=== PATIENT | female | born 1955 | race Caucasian/White ===

== ENCOUNTER 2016-07-01 16:07 | Observation (INO) | payer MEDICARE, OTHER ==
--- NOTE | ~2016-07-01 | DS ---
Unit #: [id number] #: [id number] Patient: OLLIE ZAMBRANO [id number] [address] [address] [id number] I MR#: [id number] NAME: OLLIE ZAMBRANO. ROOM: 301 Age: 61 Sex: F Admission Date: 07/01/2016 : 1955 Discharge Date: 07/03/2016 Attending Physician: Trey Hester M.D. DISCHARGE SUMMARY DISCHARGE DIAGNOSES 1. Angina pectoris, ruled out for acute myocardial infarction. 2. Acute bronchitis. 3. Lung nodule. 4. Chronic obstructive pulmonary disease exacerbation. 5. Asthma exacerbation. 6. Uncontrolled hypertension. 7. Hyperlipidemia. 8. Diabetes mellitus type 2. 9. Obesity. 10. Coronary artery disease with history of PCI, drug-eluting stent to the right coronary artery and acute right ventricular branch in 2011. 11. Chronic back pain. DISCHARGE MEDICATIONS 1. ProAir FHA 1-2 puffs p.r.n. 2. Combivent mini-nebs p.r.n. 3. Q-Ishan 1 puff inhaled b.i.d. 4. Glucophage 500 mg b.i.d. 5. Norvasc 5 mg daily. 6. Metoprolol tartrate 50 mg at nighttime. 7. Senna lax 1 tablet p.r.n. 8. Furosemide 20 mg b.i.d. 9. Insulin NPH 30 units q.a.m., 50 units q.p.m. 10. Humalog 13-15 units subcutaneous b.i.d. 11. Aspirin 81 mg daily. 12. Ibuprofen 400 mg p.r.n. 13. Amoxicillin 500 mg b.i.d. times 7 days. 14. Effient 10 mg daily. 15. Omeprazole 40 mg daily. 16. Imdur 60 mg daily. HOSPITAL COURSE This is a 61-year-old white female who presented to the emergency room with multiple complaints, including dyspnea, palpitations, wheezing, dizziness and cough. She also complained of chest pain and pressure. She was ruled out for an acute myocardial infarction with negative cardiac enzymes and troponin. It was felt the patient's chest pain was most likely pleuritic in nature. Imdur was increased from 30 to 60 mg daily. She was continued on dual antiplatelet therapy with aspirin and Plavix. Blood pressure was uncontrolled. There was better control after institution of Norvasc and increase of beta maeve. There was no evidence of heart failure. Dr. Peguero was asked to see the patient for pulmonary management. He felt the patient had acute bronchitis with Unit #: [id number] #: [id number] Patient: OLLIE ZAMBRANO asthma and chronic obstructive pulmonary disease exacerbation. Viral respiratory and nasal swabs were obtained, with results currently pending. She was continued on bronchial dilators and mini-neb treatments. Amoxicillin was started for acute bronchitis. There was elevation of d-dimer at 592. CTA of the chest revealed no evidence of pulmonary embolism or dissection. However, it was noted for noncalcified pulmonary nodules that were slightly larger than previous. Today the patient's blood pressure is better controlled. Her dyspnea has improved. She has no further episodes of chest pain. She is stable for discharge home today. PHYSICAL EXAMINATION VITALS: Blood pressure 138/81, heart rate 59. CHEST: Diminished breath sounds. HEART: S1 and S2. Regular rate and rhythm. ABDOMEN: Soft. Nontender. Bowel sounds present. EXTREMITIES: Without leg edema. DIAGNOSTIC DATA LABORATORY: Glucose 216, BUN 12, creatinine 0.5, sodium 134, potassium 3.7, d-dimer 592. IMAGING: CTA of the chest shows no evidence of pulmonary embolism. Three noncalcified pulmonary nodules, largest in the left lower lobe that measures 1.2 cm on today's study. May represent benign etiology, but slow growing malignancy cannot be excluded. CONSULTANTS Dr. Peguero for pulmonary management. DISCHARGE INSTRUCTIONS 1. The patient will be discharged home today. 2. Follow up with Dr. Hester on 09/11/2016 at 2:3 p.m. 3. Follow up with Dr. Joanna Pineda in two weeks. 4. The patient has a scheduled outpatient PET scan at the [facility] to follow up on malignancy, especially with development of pulmonary nodules. 5. Continue amoxicillin for seven days. 6. Medication changes include increase in metoprolol and Imdur. Norvasc has been added. Nitroglycerin has been provided. Dictated by... Kellee Ochoa.P.RMarlonNMarlon for Wali Sandy TD: 07/04/2016 09:50 JOB #: [id number] [facility] Unit #: [id number] #: [id number] Patient: JUAN MANUEL,OLLIE L DISCHARGE SUMMARY Page 1 of 1 X Stephen Pablo APRN DISCHARGE SUMMARY
--- NOTE | ~2016-07-01 | HP ---
Unit #: [id number] #: [id number] Patient: OLLIE ZAMBRANO [id number] [address] [place], [place] [address] [id number] I MR#: [id number] NAME: OLLIE ZAMBRANO ROOM: 301 Age: 61 Sex: F Admission Date: 07/01/2016 : 1955 Attending Physician: Trey Hester M.D. HISTORY AND PHYSICAL HISTORY OF PRESENT ILLNESS This is a 61-year-old, white female who has multiple medical problems including coronary artery disease. In September of 2014, she underwent cardiac catheterization and found to have 3-vessel coronary artery disease. She underwent angioplasty with drug-eluting stent to the mid right coronary artery and the acute right ventricular branch. She had disease in the circumflex and the LAD that was not dilated. She also had previous angioplasty with bare metal stent placed into the right coronary artery in 2012. Bare metal stent was used because the patient was diagnosed with uterine cancer. Since that time, the patient has undergone radiation therapy. She has been treated at the [facility] and has ongoing workup with questionable metastasis to her liver. She has chronic back pain and ambulation is difficult for her. She spends majority of her time in bed. She presents to the emergency room because of shortness of breath, palpitations, wheezing, dizziness, and cough. Her symptoms have been ongoing for two weeks. She reports substernal chest pain and pressure that radiates to her left jaw and neck. She has chills, but no fever. Her chest pressure has been off and on for the past two weeks, occurring at various occasions at rest and on exertion. There are no alleviating factors. Dizziness is noted when she stands. She denies syncope or near syncope. She went to a pulmonary physician's office today because of wheezing. Her blood pressure was elevated and it was suggested that she come to the emergency room for evaluation. Upon arrival to the emergency room, her blood pressure was 170/80 mmHg. Troponin was negative. Her D-dimer was elevated to 592. Electrocardiogram shows no acute ischemic changes. PAST MEDICAL HISTORY 1. PCI with bare metal stent to the right coronary artery, 11/2012. 2. Cardiac catheterization, 09/27/2014, shows circumflex artery with 75% to 80% stenosis after the origin. LAD proximal 40% to 50%, at the junction 75%, and near the apex 90%. First diagonal branch 70%. Right coronary artery midvessel 90% to 95% involving the acute right ventricular branch. Acute right ventricular branch with long segment of 80% to 90% stenosis. Distal right coronary artery 40%. PDA and PLV branches normal. Left main normal. 3. Two-dimensional echocardiogram, 03/01/2012, shows an ejection fraction equal to 50%. There is trace tricuspid regurgitation and moderate concentric left ventricular hypertrophy. 4. Status post angioplasty with drug-eluting stents to the mid right coronary artery and acute right ventricular branch. 5. Hypertension. 6. Hyperlipidemia. 7. Diabetes mellitus type 2. Unit #: [id number] #: [id number] Patient: OLLIE ZAMBRANO 8. COPD. 9. Chronic back pain. 10. Metastatic uterine cancer, status post radiation. 11. Obesity. 12. Nonsmoker. PAST SURGICAL HISTORY 1. Cholecystectomy. 2. Hysterectomy. 3. Abdominal surgery for tubal . 4. Exploratory laparotomy with lysis of abdominal adhesions. SOCIAL HISTORY The patient is . She ambulates with a walker or cane when able. She has never smoked. No illicit drug and alcohol use. FAMILY HISTORY Father from Alzheimer disease and had a history of myocardial infarction. Had a brother who had myocardial infarction and cardiomyopathy. Sister who had a myocardial infarction with subsequent coronary artery bypass graft. She also had an AICD. REVIEW OF SYSTEMS Ten-point review of systems negative, except details stated in the HPI. PHYSICAL EXAMINATION VITAL SIGNS: Blood pressure 159/82, heart rate 72, and temperature 97.8. GENERAL: This is an anxious, 61-year-old, obese, white female who is in no acute distress. NEUROLOGICAL: She is awake, alert, and oriented. There are no focal weaknesses. NECK: Trachea is midline. No thyromegaly or lymphadenopathy. No jugular venous distention. HEART: S1 and S2 heart sounds are normal. No murmurs. No rubs or clicks. Regular rate and rhythm. LUNGS: With faint expiratory wheezes, both lungs. ABDOMEN: Soft. Good bowels sounds are positive. EXTREMITIES: Without leg edema. SKIN: Warm and dry. ALLERGIES Ceclor. ADVERSE REACTIONS Dilaudid, Zanaflex, Plavix, guaifenesin, diazepam, morphine, codeine, epinephrine, pseudoephedrine, lovastatin, Dulera, tetracycline, erythromycin, sulfamethoxazole, trimethoprim, ciprofloxacin, fluconazole, loratadine, carvedilol, hydralazine, losartan, Levaquin, Singulair, and muscle relaxant. HOME MEDICATIONS 1. Furosemide 20 mg b.i.d. 2. Metformin 500 mg b.i.d. 3. Metoprolol tartrate 25 mg b.i.d. 4. Effient 10 mg daily. 5. Imdur 30 mg daily. 6. Humulin N 30 units subcu. q.a.m. and 50 units q.p.m. 7. Humalog 13-15 units subcu. b.i.d. Unit #: [id number] #: [id number] Patient: OLLIE ZAMBRANO 8. QVAR 1 puff b.i.d. 9. Albuterol sulfate 1-2 puffs p.r.n. 10. Senna-Lax 1 tablet p.r.n. 11. Omeprazole 40 mg daily. 12. Ibuprofen 400 mg p.r.n. 13. Combivent mini-nebs p.r.n. DIAGNOSTIC STUDIES LABORATORY: Hemoglobin 14.1, hematocrit 42.2, platelet count 217, and white count 6. Sodium 138, potassium 4.1, BUN 12, creatinine 2.6, and glucose 165. Troponin less than 0.03. BNP 18. D-dimer 592. IMAGING: Chest x-ray shows no active disease. CARDIOVASCULAR: Electrocardiogram: Normal sinus rhythm with a rate of 73 beats per minute with no acute ischemic changes. IMPRESSION 1. Chest pain may be secondary to ischemic heart disease. 2. Uncontrolled hypertension. 3. Status post PCI and stent to the right coronary artery in 2012 with PCI and drug-eluting stent to the mid right coronary artery and acute right ventricular branch in 2015. Left circumflex and LAD not dilated. 4. Metastatic uterine cancer. 5. Insulin dependent diabetes mellitus type 2. 6. COPD. 7. Obesity. PLAN 1. Will control blood pressure with increase in beta-maeve. 2. Will increase Imdur and add Norvasc to control angina. 3. Continue to trend cardiac enzymes and troponin to rule out myocardial infarction. 4. D-dimer is elevated. Will obtain CT of the chest per PE protocol to rule out PE. 5. Anticoagulate with aspirin and Lovenox. 6. Will ask (1) to see the patient for COPD. 7. Orthostatic blood pressure will be obtained to evaluate dizziness. 8. The patient may require repeat cardiac catheterization with PCI on the mid LAD and distal LAD. Dictated by Stephen Pablo A.P.R.N. for Wali Burnett/sara TD: 07/02/2016 06:08 JOB #: [id number] Unit #: [id number] #: [id number] Patient: OLLIE ZAMBRANO HISTORY AND PHYSICAL Page 1 of 1 X Stephen Pablo APRN X HISTORY AND PHYSICAL
--- NOTE | ~2016-07-01 | EKG ---
PATIENT: OLLIE ZAMBRANO UNIT #: [id number] Ventricular Rate: 64 BPM Atrial Rate: 64 BPM P-R Interval: 192 ms QRS Duration: 88 ms Q-T Interval: 436 ms QTC Calculation(Bezet): 449 ms P [place]: 31 degrees Calculated R [place]: 51 degrees Calculated T [place]: 53 degrees Diagnosis Line: Normal sinus rhythm with sinus arrhythmia Diagnosis Line: Normal ECG Diagnosis Line: Diagnosis Line: Confirmed by CAHRLY GUADALUPE MD ([id number]) on Diagnosis Line: 07/03/2016 7:27:14 AM INTERPRETING : JOSE
--- NOTE | ~2016-07-01 | EKG ---
PATIENT: OLLIE ZAMBRANO UNIT #: [id number] Ventricular Rate: 76 BPM Atrial Rate: 76 BPM P-R Interval: 190 ms QRS Duration: 78 ms Q-T Interval: 398 ms QTC Calculation(Bezet): 447 ms P [place]: 26 degrees Calculated R [place]: 39 degrees Calculated T [place]: 40 degrees Diagnosis Line: Normal sinus rhythm Diagnosis Line: Normal ECG Diagnosis Line: When compared with ECG of 01-JUL-2016 14:00, Diagnosis Line: (unconfirmed) Diagnosis Line: No significant change was found Diagnosis Line: Confirmed by MILLY HEARN MD ([id number]) on 07/02/2016 Diagnosis Line: 10:50:12 PM INTERPRETING MD: NADIYA CONDE
--- NOTE | ~2016-07-01 | CR72 ---
[facility] A Service of [facility] & [facility] RADIOLOGY TEXT RESULTS PATIENT: OLLIE ZAMBRANO LOCATION: [facility] : 53 UNIT #: [id number] AGE: [address]: Arcelia Cooper MD SEX: F ORDER DR: [id number] [facility] [address] [place], [place] [address] [id number] MR#: [id number] Acc #: [id number] NAME: OLLIE ZAMBRANO : 1955 SEX: F STUDY DATE/TIME: 07/01/2016 14:28 UNIT: [facility] ROOM: STUDY DESCRIPTION: CR Chest Single View Portable Attending Physician: Arcelia Cooper M.D. Ordering Physician: Arcelia Cooper M.D. MEDICAL IMAGING REPORT This report is preliminary unless electronic signature is present EXAM Portable chest x-ray INDICATION Chest pain and headache for 1 day. FINDINGS Comparison is made to a prior exam from August 31, 2015. Heart size is within normal limits. I do not see any acute infiltrates. There is no pneumothorax or pleural effusion. There is stable eventration of the right hemidiaphragm. Dictated by... Kassie Chao M.D. THIS IS AN ELECTRONICALLY VERIFIED REPORT Kassie Chao M.D. at 07/01/2016 5:33 PM BILL/madeline TD: 07/01/2016 16:09 JOB #: [id number] MEDICAL IMAGING REPORT Page 1 of 1 COPY
--- NOTE | ~2016-07-01 | CT16 ---
[facility] A Service of [facility] & [facility] RADIOLOGY TEXT RESULTS PATIENT: OLLIE ZAMBRANO LOCATION: [facility] 301- : 53 UNIT #: [id number] AGE: [address]: Trey Hester MD SEX: F ORDER DR: [id number] [facility] [address] [place], [place] [address] [id number] I MR#: [id number] Acc #: [id number] NAME: OLLIE ZAMBRANO : 1955 SEX: F STUDY DATE/TIME: 07/01/2016 19:31 UNIT: [address] ROOM: [facility] STUDY DESCRIPTION: CT Angio Chest for PE Attending Physician: Trey Hester M.D. Ordering Physician: Arcelia Cooper M.D. MEDICAL IMAGING REPORT This report is preliminary unless electronic signature is present EXAM CT chest with contrast, PE protocol. DATE OF EXAM 07/01/2016 INDICATIONS 61-year-old female with chest pain and shortness of breath for 1 week. Elevated D-dimer. TECHNIQUE CT of the chest was performed following administration of IV contrast using a pulmonary embolism protocol. Coronal and sagittal reformatted images were obtained. NOTE: This CT exam was performed with one or more of the following radiation dose reduction techniques: automatic exposure control, adjustment of mA and/or kV according to patient size, and iterative reconstruction. COMPARISON Comparison with 08/31/2015. FINDINGS There is no evidence of pulmonary embolism. There is no evidence of lymphadenopathy or pleural effusion. Redemonstrated are bilateral pulmonary nodules. The largest is located in the left lower lobe measures 1.2 cm on today's study. Previously it measured about 9 mm and was not present in 2014. The other 2 nodules are both less than 1 cm and located in the right upper lobe, and may be slightly increased in size but this may be due to differences in slice thickness. There is also some nodularity along the right hemidiaphragm which is chronic. It has been present since at least 2013. Its etiology is uncertain. Limited imaging of the upper abdomen demonstrates cholecystectomy. Patient does have a nodular contour of the liver suggesting cirrhotic morphology. The bone [facility] A Service of [facility] RADIOLOGY TEXT RESULTS PATIENT: OLLIE ZAMBRANO LOCATION: [facility] 301-01 : 53 UNIT #: [id number] AGE: [address]: Trey Hester MD SEX: F ORDER DR: windows are unremarkable. IMPRESSION 1. There is no evidence of pulmonary embolism. 2. 3 noncalcified pulmonary nodules are again noted. The largest is in the left lower lobe and measures about 1.2 cm on today's study. Previously it was 9 mm and reviewing study from 2013 demonstrated that it was not present. While this may represent a benign etiology, a slow growing malignancy cannot be excluded. Would suggest evaluation with a PET/CT. 3. Additional findings as described above. Dictated by... Feliz Nguyễn M.D. THIS IS AN ELECTRONICALLY VERIFIED REPORT Feliz Nguyễn M.D. at 07/02/2016 10:04 AM OMAR/arturo TD: 07/01/2016 23:48 JOB #: [id number] MEDICAL IMAGING REPORT Page 1 of 1 COPY
--- NOTE | ~2016-07-01 | CO ---
Unit #: [id number] #: [id number] Patient: OLLIE ZAMBRANO [id number] [address] [place], [place] [address] [id number] I MR#: [id number] NAME: OLLIE ZAMBRANO. ROOM: 301 Age: 61 Sex: F Admission Date: 07/01/2016 : 1955 Attending Physician: Trey Hester M.D. Requesting Physician: Trey Hester M.D. CONSULTATION REPORT HISTORY OF PRESENT ILLNESS This is a 61-year-old lady with a history of multiple medical problems. She has got a history of coronary artery disease. In September of 2014, she had cardiac catheterization, 3-vessel disease, drug-eluting stent and angioplasty x2 in mid right coronary artery and right ventricular branch. She has had a history of uterine cancer. She has also had a history of radiation to her spine. She states approximately a month and a half ago, she had recurrence of her lumbar disk disease, which has caused her significant pain in the past and now occurs again. She has had a lack of ambulation due to severe back pain. Patient spends a lot of time in bed. She had been caring for her who is now in a [place] [facility] due to amputation. Patient has now had two weeks of shortness of breath. No sick contacts. Substernal chest pain and chills. No fever. Chest pressure off and on. Cough has not been productive. Denies syncope and near syncope. Patient went to our office because of wheezing. She is on inhaled corticosteroids. She does not do well with systemic corticosteroids. D-dimer was slightly elevated. CT scan of the chest was performed, PE protocol. It showed increase in size of 1 nodule to 1.2 cm x 9 mm approximately 1 year ago. REVIEW OF SYSTEMS Negative, except as per history of present illness. PAST MEDICAL HISTORY Significant for PCI and bare metal stent in right coronary artery in 2012, repeat stenting x2 in right distribution, 50% ejection fraction, hypertension, hyperlipidemia, diabetes mellitus type 2, COPD, chronic back pain, metastatic uterine cancer, status post radiation, obesity, and patient is a nonsmoker. PAST SURGICAL HISTORY Significant for cholecystectomy, hysterectomy, history of abdominal surgery for tubal , and history of exploratory laparotomy with lysis of abdominal adhesions. SOCIAL HISTORY The patient is . She ambulates with a walker. She is a never smoker. She has had significant secondhand smoke exposure. No polysubstance use. No alcohol use. No occupational exposure. FAMILY HISTORY Significant for Alzheimer, coronary artery disease, and cardiomyopathy. PHYSICAL EXAMINATION Unit #: [id number] #: [id number] Patient: OLLIE ZAMBRANO VITAL SIGNS: T. current 97.7, pulse 64, respiratory rate 16, 02 saturation 97% on 2 liters nasal cannula. HEENT: Extraocular movements intact. CHEST: Clear to auscultation bilaterally. CARDIOVASCULAR: Regular rate. No gallop. ABDOMEN: Soft, nontender, and nondistended. EXTREMITIES: Show no evidence of edema. DIAGNOSTIC STUDIES LABORATORY: Data shows the cardiac enzymes are negative x3. Glucose between 223 and 281, BUN and creatinine are 12 and 0.5, and sodium 134. Otherwise, chem. 7 is within normal limits. ASSESSMENT AND PLAN 1. Lung nodule appears to be increasing in size. Patient will need PET scan as an outpatient. 2. COPD, acute bronchitis, asthma exacerbation. Will start patient on amoxicillin as she is allergic to a large number of medications including azithromycin and fluoroquinolones. The patient will continue on her inhaled QVAR and scheduled albuterol nebs. If patient is doing well, she probably can be discharged tomorrow. Please page me at [phone] for any questions. Dictated by... Mendoza Peguero M.D. Estella TD: 07/03/2016 07:24 JOB #: [id number] CONSULTATION REPORT Page 1 of 1 X Juan Peguero MD CONSULTATION REPORT
--- NOTE | ~2016-07-01 | EKG ---
PATIENT: OLLIE ZAMBRANO UNIT #: [id number] Ventricular Rate: 73 BPM Atrial Rate: 73 BPM P-R Interval: 192 ms QRS Duration: 82 ms Q-T Interval: 386 ms QTC Calculation(Bezet): 425 ms P [place]: 26 degrees Calculated R [place]: 14 degrees Calculated T [place]: 44 degrees Diagnosis Line: Normal sinus rhythm Diagnosis Line: Possible Left atrial enlargement Diagnosis Line: Borderline ECG Diagnosis Line: When compared with ECG of 01-SEP-2015 12:47, Diagnosis Line: Questionable change in QRS axis Diagnosis Line: Confirmed by MILLY HEARN MD ([id number]) on 07/02/2016 Diagnosis Line: 7:15:37 PM INTERPRETING MD: NADIYA CONDE
[2016-07-01 14:49] LABS: BASOPHIL% 0.6 % (0-2.5); EOSINOPHIL# 0.3 X10e3 (0-0.7); EOSINOPHIL% 4.3 % (0.0-7.0); HEMATOCRIT 42.2 % (35.0-45.0); HEMOGLOBIN 14.1 gm/dL (12.0-16.0); LYMPHOCYTE# 0.9 X10e3 (1.0-3.5); LYMPHOCYTE% 15.5 % (17.0-45.0); MEAN CORPUSCULAR HEMOGLOBIN 30.5 PG (28-34); MEAN CORPUSCULAR HGB CONC 33.5 g/dL (30-36); MEAN PLATELET VOLUME 7.5 FL (6.5-11.5); MONOCYTE# 0.7 X10e3 (0-1.0); MONOCYTE% 12.3 % (3.0-12.0); NEUTROPHIL# 4.1 X10e3 (1.5-7.1); NEUTROPHIL% 67.3 % (40-75); PLATELET COUNT 217 X10e3 (140-420); RED BLOOD COUNT 4.64 X10e (3.90-5.30); RED CELL DISTRIBUTION WIDTH 13.7 % (11.0-15.5)
[2016-07-01 15:00] LABS: POC - CKMB 1.3 ng/mL (0.0-7.9); POC - TROPONIN <0.05 ng/mL (<=0.05)
[2016-07-01 15:01] LABS: DIFF IND NO
[2016-07-01 15:08] LABS: PARTIAL THROMBOPLASTIN TIME 24.3 SECONDS (23.5-31.3); PROTHROMBIN TIME (PATIENT) 10.4 SECONDS (9.6-11.5)
[2016-07-01 15:18] LABS: ALBUMIN SERUM 3.6 g/dL (3.5-5.0); BILIRUBIN, DIRECT 0.1 mg/dL (0.0-0.2); BILIRUBIN,INDIRECT 0.4 mg/dL (0.0-0.9); BILIRUBIN,TOTAL 0.5 mg/dL (0.2-2.0); CALCIUM SERUM 9.2 mg/dL (8.4-10.2); CREATININE SERUM 0.6 mg/dL (0.6-1.4); GLOM FILT RATE Estimated 97.7 mL/min (>60); POTASSIUM 4.2 mmol/L (3.5-5.1); PROTEIN TOTAL SERUM 7.6 g/dL (6.0-8.3)
[~2016-07-01 16:07] MED LIST: ADVIL100 MG PO; ALBUTEROL MININEB INH; ALBUTEROL17 GM INH; AMOXICILLIN PO; AMOXICILLIN500 M1 PO; AMOXIL500 MG PO; ASPIRIN ENTERI325 M1 PO; ASPIRIN PO; ASPIRIN81 MG PO; AUGMENTIN PO; CARVEDILOL3.125 MG PO; DEMEROL PO; EFFIENT10 MG PO; FLEXERIL PO; GLUCOPHAGE XR500 MG PO; GLUCOPHAGE500 MG PO; GLYNASE PO; HUMALOG100 U/ML; HUMULIN N100 UNITS/ SUBQ; IMDUR-ER30 M1 PO; IPRATROPIUM0.2 MG/ML NEB; LASIX20 MG PO; LISINOPRIL PO; LISINOPRIL20 MG PO; LOPRESSOR PO; MACROBID100 MG PO; METOPROLOL TAR25 MG PO; MICRONASE5 M2 PO; MIRALAX17 GM PO; MUCINEX DM1 TAB.SR .; NITROGLYGERIN0.4 MG SL; NOVOLIN N100 U/M1 SQ; NOVOLIN N100 U/ML INJ; NOVOLIN N100 UNIT/1 SQ; NOVOLIN N100 UNIT/1 SUBQ; OMEPRAZOLE20 M1 PO; OXYIR5 MG; PREDNISONE10 MG/DOSE; PROAIR HFA8.5 GM; PROAIR HFA8.5 GM IH; PROAIR RESPICL90 MCG; QVAR7.3 G1 INH; QVAR7.3 GM; QVAR7.3 GM INH; RANEXA500 MG PO; SENNA PO; TUSSIONEX PENN473 ML PO; WELCHOL3.75 GM PO; ZANAFLEX4 M1 PO; ZETIA PO; ZOLOFT50 MG PO
[2016-07-01 16:48] LABS: POC - CKMB 1.3 ng/mL (0.0-7.9); POC - TROPONIN <0.05 ng/mL (<=0.05)
[2016-07-01] MEDS ORDERED: LASIX20 MG PO (17:15)
[2016-07-01] MEDS ORDERED: METOPROLOL TAR25 MG PO (17:15)
[2016-07-01] MEDS ORDERED: GLUCOPHAGE500 MG PO (17:15)
[2016-07-01] MEDS ORDERED: EFFIENT10 MG PO (17:16)
[2016-07-01] MEDS ORDERED: IMDUR-ER30 M1 PO (17:17)
[2016-07-01] MEDS ORDERED: HUMULIN N100 UNIT/2 SUBQ ×2 (17:17→17:18)
[2016-07-01] MEDS ORDERED: HUMALOG100 UNIT/2 SUBQ (17:18)
[2016-07-01] MEDS ORDERED: PROAIR HFA8.5 GM INH (17:19)
[2016-07-01] MEDS ORDERED: QVAR8.7 G1 INH (17:19)
[2016-07-01] MEDS ORDERED: ATROVENT HFA12.9 G1 INH (17:20)
[2016-07-01] MEDS ORDERED: SENNA-LAX8.6 M1 PO (17:20)
[2016-07-01] MEDS ORDERED: OMEPRAZOLE40 M1 PO (17:21)
[2016-07-01] MEDS ORDERED: MOTRIN400 M1 PO (17:24)
[2016-07-01] MEDS ORDERED: IPRATR-ALBUTEROL3 ML INH (17:25)
[2016-07-01 23:18] LABS: CK TOTAL 30 IU/L (26-140)
[2016-07-02 06:16] LABS: CK TOTAL 31 IU/L (26-140)
[2016-07-02 06:21] LABS: CALCIUM SERUM 8.8 mg/dL (8.4-10.2); CREATININE SERUM 0.5 mg/dL (0.6-1.4); GLOM FILT RATE Estimated 103.7 mL/min (>60); MAGNESIUM 1.9 mg/dL (1.6-3.0); POTASSIUM 3.7 mmol/L (3.5-5.1)
[2016-07-03 05:38] LABS: MAGNESIUM 1.9 mg/dL (1.6-3.0); PHOSPHOROUS 4.1 mg/dL (2.5-4.6)
[2016-07-03] MEDS ORDERED: NORVASC PO (16:27)
[2016-07-03] MEDS ORDERED: ASPIRIN81 M2 PO (16:28)
[2016-07-03] MEDS ORDERED: AMOXICILLIN500 M1 PO (16:28)
[2016-07-03] MEDS ORDERED: LOPRESSOR PO (16:28)
[2016-07-03] MEDS ORDERED: IMDUR-ER60 M1 PO (16:29)
[2016-12-09] MEDS ORDERED: MONISTAT 11 EACH VAG (23:04)
== END 2016-07-03 18:30 | disposition home or self-care (01) ==
LOC: CED 16:07 → CEDOF 17:19 → C3A PCU 21:27
PROVIDERS: Emergency Medicine; Internal Medicine Pulmonary Disease
DX: I25.119 Atherosclerotic heart disease of native coronary artery with unspecified angina pectoris (principal); J44.0 Chronic obstructive pulmonary disease with (acute) lower respiratory infection; J20.9 Acute bronchitis, unspecified; J44.1 Chronic obstructive pulmonary disease with (acute) exacerbation; J45.901 Unspecified asthma with (acute) exacerbation; R91.1 Solitary pulmonary nodule; I10 Essential (primary) hypertension; E78.5 Hyperlipidemia, unspecified; E11.9 Type 2 diabetes mellitus without complications; E66.9 Obesity, unspecified; I25.10 Atherosclerotic heart disease of native coronary artery without angina pectoris; Z95.5 Presence of coronary angioplasty implant and graft; M54.9 Dorsalgia, unspecified; G89.29 Other chronic pain; Z79.4 Long term (current) use of insulin; Z79.84 Long term (current) use of oral hypoglycemic drugs; Z79.82 Long term (current) use of aspirin; Z79.02 Long term (current) use of antithrombotics/antiplatelets; Z82.49 Family history of ischemic heart disease and other diseases of the circulatory system; Z82.0 Family history of epilepsy and other diseases of the nervous system; Z90.710 Acquired absence of both cervix and uterus; Z90.49 Acquired absence of other specified parts of digestive tract
CPT/HCPCS: 36415; 71010; 71275; 80048; 80076; 82550; 82553; 82947; 83690; 83735; 83880; 84100; 84484; 85025; 85379; 85610; 85730; 87070; 87633; 93005; 94640; 94760; 99285; G0378; J1650; J1815; Q9967

== ENCOUNTER → 2016-07-25 | Outpatient (CLI) | payer MEDICARE, OTHER ==
[~2016-07-25] MED LIST changes: +ASPIRIN81 M2 PO; +ATROVENT HFA12.9 G1 INH; +HUMALOG100 UNIT/2 SUBQ; +HUMULIN N100 UNIT/2 SUBQ; +IMDUR-ER60 M1 PO; +IPRATR-ALBUTEROL3 ML INH; +MONISTAT 11 EACH VAG; +MOTRIN400 M1 PO; +NORVASC PO; +OMEPRAZOLE40 M1 PO; +PROAIR HFA8.5 GM INH; +QVAR8.7 G1 INH; +SENNA-LAX8.6 M1 PO
--- NOTE | ~2016-07-25 | CT69 ---
[facility] A Service of [facility] RADIOLOGY TEXT RESULTS PATIENT: OLLIE ZAMBRANO LOCATION: [facility] #: [id number] : 53 UNIT #: [id number] AGE: [address]: SANTIAGO RIOS MD SEX: F ORDER DR: [id number] [address] [address] [id number] O MR#: [id number] Acc #: [id number] NAME: OLLIE ZAMBRANO. : 1955 SEX: F STUDY DATE/TIME: 07/25/2016 13:36 UNIT: [facility] ROOM: STUDY DESCRIPTION: CT Head W Contrast Ordering Physician: Danni Rios M.D. MEDICAL IMAGING REPORT This report is preliminary unless electronic signature is present EXAM Head CT with contrast 07/25/2016 COMPARISON STUDIES 05/29/2013. HISTORY Dizzy spells, loss of balance, and headache for 10 years. History of cervical cancer. TECHNIQUE Axial contrast enhanced head CT. This CT exam was performed with one or more of the following radiation dose reduction techniques: automatic exposure control, adjustment of mA and/or kV according to patient size, and iterative reconstruction. FINDINGS There is no intracranial mass or abnormal enhancement. There is no evidence of hydrocephalus or extraaxial fluid collection. Brain parenchymal density appears normal. The extracranial soft tissues are normal. IMPRESSION Normal negative contrast enhanced head CT. Dictated by... Sandoval Taveras M.D. THIS IS AN ELECTRONICALLY VERIFIED REPORT [facility] A Service of [facility] RADIOLOGY TEXT RESULTS PATIENT: OLLIE ZAMBRANO LOCATION: [facility] : 53 UNIT #: [id number] AGE: [address]: SANTIAGO RIOS MD SEX: F ORDER DR: Sandoval Taveras M.D. at 07/30/2016 1:25 PM TEV/pcl TD: 07/25/2016 20:56 JOB #: [id number] MEDICAL IMAGING REPORT Page 1 of 1 COPY
--- NOTE | ~2016-07-25 | CT2 ---
[facility] A Service [facility] RADIOLOGY TEXT RESULTS PATIENT: OLLIE ZAMBRANO LOCATION: [facility] : 54 UNIT #: [id number] AGE: [address]: SANTIAGO RIOS MD SEX: F ORDER DR: [id number] [place] [id number] [facility]. [place], [place] [address] [id number] O MR#: [id number] Acc #: [id number] NAME: OLLIE ZAMBRANO. : 1955 SEX: F STUDY DATE/TIME: 07/25/2016 13:36 UNIT: [facility] ROOM: STUDY DESCRIPTION: CT Abd and Pelv W Cont Ordering Physician: Danni Rios M.D. MEDICAL IMAGING REPORT This report is preliminary unless electronic signature is present EXAM CT abdomen and pelvis with contrast INDICATIONS Generalized abdominal pain. Upper abdominal pain and vomiting for the past 4 months. TECHNIQUE Contrast-enhanced CT of the abdomen and pelvis, 100 mL of Isovue-370. This CT exam was performed with one or more of the following radiation dose reduction techniques: automatic exposure control, adjustment of mA and/or kV according to patient size, and iterative reconstruction. COMPARISON 01/15/2016. FINDINGS ABDOMEN WITH CONTRAST: There is a 1.3 cm nodule in the left lower lobe. This measured approximately 1 cm on the 01/15/2016 study. Questionable cirrhotic morphology of the liver. Possible mass on either in the dome of the liver or associated with the right hemidiaphragm. It measures approximately 3.3 cm. It is not significantly changed from the previous study. No new liver lesion is seen on this single phase study. The spleen is not enlarged at 13.7 cm. There are perisplenic collateral vessels, as well as a splenorenal shunt. There is no ascites. Tiny non-obstructing calculus in the lower pole of the left kidney. The adrenal glands, pancreas unremarkable. Previous cholecystectomy. The bowel loops are non-dilated. There is moderate colonic stool. No abdominal adenopathy. [facility] A Service of [facility] RADIOLOGY TEXT RESULTS PATIENT: OLLIE ZAMBRANO LOCATION: [facility] : 54 UNIT #: [id number] AGE: [address]: SANTIAGO RIOS MD SEX: F ORDER DR: PELVIS WITH CONTRAST: Previous hysterectomy. No pelvic mass or adenopathy. No aggressive appearing bone lesion. IMPRESSION 1. Suspected mass either in the dome of the liver or along the right hemidiaphragm, not significantly changed from the previous study. Stability favors a benign process but this is entirely nonspecific. MRI or multiphase CT may be helpful. 2. There is a slightly enlarging nodule in the left lower lobe. Recommend evaluation with a PET/CT. Dictated by... Jovany Smith M.D. THIS IS AN ELECTRONICALLY VERIFIED REPORT Jovany Smith M.D. at 07/29/2016 7:22 AM EEMya/juliana TD: 07/25/2016 19:16 JOB #: [id number] MEDICAL IMAGING REPORT Page 1 of 1 COPY
[2016-07-25 16:46] LABS: POC - CREATININE 0.68 mg/dL (0.44-1.03); POC - GFR >60.0 mL/min (>60)
== END | disposition home or self-care (01) ==
LOC: CCAT 12:05
PROVIDERS: Radiology Radiation Oncology
DX: R42 Dizziness and giddiness (principal); R10.84 Generalized abdominal pain; R91.1 Solitary pulmonary nodule
CPT/HCPCS: 70460; 74177; 82565; Q9967

== ENCOUNTER → 2016-07-29 | Outpatient (CLI) | payer MEDICARE, OTHER ==
--- NOTE | ~2016-07-29 | US6 ---
[facility] A Service of [facility] & [facility] RADIOLOGY TEXT RESULTS PATIENT: OLLIE ZAMBRANO LOCATION: [facility] : 54 UNIT #: [id number] AGE: [address]: Radha Negrete MD SEX: F ORDER DR: [id number] [facility] [address] [place], [place] [address] [id number] O MR#: [id number] Acc #: [id number] NAME: OLLIE ZAMBRANO : 1955 SEX: F STUDY DATE/TIME: 07/29/2016 9:47 UNIT: [facility] ROOM: STUDY DESCRIPTION: US Abdominal Limited Attending Physician: Radha Negrete M.D. Referring Physician: Generic Doctor Not In System Ordering Physician: Radha Negrete M.D. Primary Care Physician: Generic Doctor Not In System MEDICAL IMAGING REPORT This report is preliminary unless electronic signature is present EXAM Right upper quadrant abdominal ultrasound INDICATION Cirrhosis. Right upper quadrant abdominal pain, abnormal finding on diagnostic imaging of the abdomen. Possible mass at the dome of the liver on previous CT. PROCEDURE Chavez-scale and Doppler imaging right upper quadrant of the abdomen. COMPARISON CT from 07/25/2016 FINDINGS Visualized portions of the pancreas are unremarkable. There is a 2.3 cm hypoechoic lesion in what appears to be the left hepatic lobe. This lesion is not clearly seen on the comparison CT. Portions of the liver are difficult to evaluate. Liver measures 16.5 cm in length. There is what appears to be a hypoechoic lesion measuring 2.5 cm in the posterior liver, right hepatic lobe. This also is not clearly seen on the CT. The lesion of concern towards the dome of the liver is not clearly seen on this study. Right kidney measures 11.2 cm. No hydronephrosis. Previous cholecystectomy. IMPRESSION 1. Portions of the liver are not well characterized. There does appear to be coarsened hepatic echotexture. 2. Two liver lesions are seen, 1 in the left lobe, 1 in the right lobe as detailed above and there is no clear correlate on the recent single phase CT. These should be characterized with either [facility] A Service of [facility] & [facility] RADIOLOGY TEXT RESULTS PATIENT: OLLIE ZAMBRANO [id number] 53 UNIT #: [id number] AGE: [address]: Radha Negrete MD SEX: F ORDER DR: multiphase MRI or CT. The lesion at the dome of the liver on the previous CT is not clearly seen on this study and could be further characterized at the time of multiphase imaging. Dictated by... Jovany Smith M.D. THIS IS AN ELECTRONICALLY VERIFIED REPORT Jovany Smith M.D. at 07/30/2016 1:56 PM Phong TD: 07/29/2016 11:56 JOB #: [id number] MEDICAL IMAGING REPORT Page 1 of 1 COPY
== END | disposition home or self-care (01) ==
LOC: CWCC 09:09
DX: R10.11 Right upper quadrant pain (principal); K74.69 Other cirrhosis of liver; K76.9 Liver disease, unspecified
CPT/HCPCS: 76705

== ENCOUNTER 2016-09-09 12:56 | Emergency (ER) | payer MEDICARE, OTHER ==
--- NOTE | ~2016-09-09 | CR72 ---
[facility] A Service of [facility] RADIOLOGY TEXT RESULTS PATIENT: OLLIE ZAMBRANO LOCATION: [facility] #: [id number] : 53 UNIT #: [id number] AGE: [address]: Arcelia Cooper MD SEX: F ORDER DR: [id number] [facility] [address]. [place], [place] [address] [id number] E MR#: [id number] Acc #: [id number] NAME: OLLIE ZAMBRANO. : 1955 SEX: F STUDY DATE/TIME: 09/09/2016 14:47 UNIT: [facility] ROOM: STUDY DESCRIPTION: CR Chest Single View Portable Attending Physician: Arcelia Cooper M.D. Ordering Physician: Arcelia Cooper M.D. MEDICAL IMAGING REPORT This report is preliminary unless electronic signature is present EXAM AP radiograph chest HISTORY Abdominal pain. Short of air. Duration 1 week. Prior history of cervical and vaginal cancer. Diabetes. CHF. Asthma. 3 lung nodules. Heart stents x3. TECHNIQUE AP radiograph of the chest is presented. COMPARISON STUDIES 08/31/2015, 09/25/2014. CT abdomen and pelvis 07/25/2016. FINDINGS No acute-appearing bony abnormality. Stable mild cardiac enlargement. The lungs are well inflated. There is no evidence of acute infectious or inflammatory disease, pleural effusion or pneumothorax. No new pulmonary nodule. There is contour irregularity along the hepatic dome/right hemidiaphragm which has been described on prior examinations. On today's study, it appears slightly more prominent than on prior chest radiographs but this could easily be a projectional artifact. Exact etiology is unclear. Please see prior CT examination dated 07/25/2016 for further assessment. Records in DR PACS System indicate patient is scheduled for CT abdomen and pelvis today. CT abdomen and pelvis will give a better indication of any change in this structure. No pleural effusion. No pneumothorax. Dictated by... Ari Alfredo M.D. [facility] A Service of [facility] RADIOLOGY TEXT RESULTS PATIENT: OLLIE ZAMBRANO [id number] 53 UNIT #: [id number] AGE: [address]: Arcelia Cooper MD SEX: F ORDER DR: THIS IS AN ELECTRONICALLY VERIFIED REPORT Ari Alfredo M.D. at 09/10/2016 12:11 PM KARO/juliana TD: 09/09/2016 22:19 JOB #: [id number] MEDICAL IMAGING REPORT Page 1 of 1 COPY
--- NOTE | ~2016-09-09 | CT2 ---
[facility] A Service of [facility] & [facility] RADIOLOGY TEXT RESULTS PATIENT: OLLIE ZAMBRANO LOCATION: [facility] : 53 UNIT #: [id number] AGE: [address]: Arcelia Cooper MD SEX: F ORDER DR: [id number] [facility] [address] [place], [place] [address] [id number] E MR#: [id number] Acc #: [id number] NAME: OLLIE ZAMBRANO. : 1955 SEX: F STUDY DATE/TIME: 09/09/2016 16:11 UNIT: [facility] ROOM: STUDY DESCRIPTION: CT Abd and Pelv W Cont Attending Physician: Arcelia Cooper M.D. Ordering Physician: Arcelia Cooper M.D. MEDICAL IMAGING REPORT This report is preliminary unless electronic signature is present EXAM CT of the abdomen and pelvis with contrast INDICATIONS Right-sided abdominal pain under the ribs x 1 week. Patient also reports right lower quadrant pain starting today. TECHNIQUE Axial CT images of the diaphragm to the symphysis pubis following the administration of the contrast material. This CT exam was performed with one or more of the following radiation dose reduction techniques: automatic exposure control, adjustment of mA and/or kV according to patient size, and iterative reconstruction. FINDINGS Images through the lung bases demonstrate a centrally calcified benign nodule within the left lower lobe. There is also a 1.2 cm nodule, which has been slowly increasing in size over time. Previously, it measured about 9 mm in August 2015. It now measures up to 1.2 cm. Interval increase in size is certainly worrisome. Gallbladder is surgically absent. The liver appears unremarkable. Calcified granulomata are seen within the spleen. Patient does have splenomegaly with the spleen measuring up to 14.1 cm in AP dimension. The stomach and proximal small bowel are within normal limits. Adrenal glands appear normal. Pancreas is mildly atrophic. Prominent splenic collaterals are noted. No suspicious renal nodules are identified. Additional prominent collaterals is seen tracking along the right pericolic gutter. Again, these were present on prior study dating back to February 2015. Patient is also noted to have hepatomegaly with the liver measuring up to 16.7 cm in craniocaudal dimensions. Appendix cannot be seen but I do not see a dilated tubular structure or soft tissue stranding within the right lower quadrant to suggest acute appendicitis. Uterus is surgically absent. Urinary bladder STS. [facility] A Service of [facility] & [facility] RADIOLOGY TEXT RESULTS PATIENT: OLLIE ZAMBRANO LOCATION: [facility] : 53 UNIT #: [id number] AGE: [address]: Arcelia Cooper MD SEX: F ORDER DR: contains some foci of gas. Correlation with any recent history of catheterization is suggested. Patient does appear to have a spontaneous splenorenal shunt and underlying cirrhosis with portal hypertension is certainly not excluded. Portal vein does appear to be patent. Patient's appendix cannot be identified but I do not see a dilated tubular structure or soft tissue stranding within the right lower quadrant to suggest acute appendicitis. Patient does have fairly extensive fecal burden within the colon, particularly within the cecum and ascending colon. Correlation with history of constipation is recommended. There is no evidence mechanical small bowel obstruction. There is no pelvic adenopathy. Review of bony windows does not demonstrate any aggressive osseous abnormalities. IMPRESSION 1. Hepatosplenomegaly. 2. This patient is noted have spontaneous splenorenal shunt as well as prominent mesenteric collaterals. Clinical significance is uncertain. Certainly, correlation with any history of cirrhosis and portal hypertension is recommended. 2. Patient's appendix cannot be identified but I do not see any dilated tubular structure or soft tissue stranding within the right lower quadrant to suggest acute appendicitis. 3. Extensive fecal burden is noted throughout the ascending colon and cecum. Correlation with any history of constipation is recommended. 4. Uterus is surgically absent. 5. Patient does have some gas within the bladder. Please correlate with any recent history of catheterization. 6. Noncalcified pulmonary nodule within the left lower lobe has been increasing in size over time, certainly worrisome for malignancy. I would suggest further evaluation with a CAT scan on a non-emergent outpatient basis. Dictated by... Kassie Chao M.D. THIS IS AN ELECTRONICALLY VERIFIED REPORT Kassie Chao M.D. at 09/11/2016 5:14 PM AFF/pcl TD: 09/09/2016 23:52 JOB #: [id number] MEDICAL IMAGING REPORT Page 1 of 1 COPY
--- NOTE | ~2016-09-09 | EKG ---
PATIENT: OLLIE ZAMBRANO UNIT #: [id number] Ventricular Rate: 74 BPM Atrial Rate: 74 BPM P-R Interval: 194 ms QRS Duration: 78 ms Q-T Interval: 408 ms QTC Calculation(Bezet): 452 ms P Walden: 21 degrees Calculated R Walden: 30 degrees Calculated T Walden: 49 degrees Diagnosis Line: Normal sinus rhythm Diagnosis Line: Normal ECG Diagnosis Line: When compared with ECG of 03-JUL-2016 07:01, Diagnosis Line: No significant change was found Diagnosis Line: Confirmed by CHARLY GUADALUPE MD ([id number]) on Diagnosis Line: 09/10/2016 10:56:35 AM INTERPRETING MD: JOSE
[~2016-09-09 12:56] MED LIST changes: -MONISTAT 11 EACH VAG
[2016-09-09 14:56] LABS: BASOPHIL% 0.2 % (0-2.5); EOSINOPHIL# 0.2 X10e3 (0-0.7); EOSINOPHIL% 2.6 % (0.0-7.0); HEMATOCRIT 43.8 % (35.0-45.0); HEMOGLOBIN 14.7 gm/dL (12.0-16.0); LYMPHOCYTE# 0.8 X10e3 (1.0-3.5); LYMPHOCYTE% 11.4 % (17.0-45.0); MEAN CELL VOLUME 87.2 FL (83-96); MEAN CORPUSCULAR HEMOGLOBIN 29.3 PG (28-34); MEAN CORPUSCULAR HGB CONC 33.6 g/dL (30-36); MEAN PLATELET VOLUME 7.1 FL (6.5-11.5); MONOCYTE# 0.7 X10e3 (0-1.0); MONOCYTE% 9.8 % (3.0-12.0); NEUTROPHIL# 5.2 X10e3 (1.5-7.1); PLATELET COUNT 215 X10e3 (140-420); RED BLOOD COUNT 5.02 X10e (3.90-5.30); RED CELL DISTRIBUTION WIDTH 14.4 % (11.0-15.5); WHITE BLOOD COUNT 6.8 X10e3 (4.0-10.5)
[2016-09-09 14:58] LABS: DIFF IND NO
[2016-09-09 15:01] LABS: URINE SOURCE CLEAN CATCH
[2016-09-09 15:08] LABS: URINE APPEARANCE CLEAR; URINE BILIRUBIN NEG (NEG); URINE BLOOD 3+ (NEG); URINE COLOR YELLOW; URINE GLUCOSE 500 MG/DL (NEG); URINE KETONE NEG (NEG); URINE LEUKOCYTE ESTERASE 1+ (NEG); URINE NITRATE NEG (NEG); URINE PROTEIN TRACE (NEG); URINE SPECIFIC GRAVITY 1.025 (1.003-1.035)
[2016-09-09 15:10] LABS: PARTIAL THROMBOPLASTIN TIME 24.8 SECONDS (23.5-31.3)
[2016-09-09 15:10] LABS: CULTURE INDICATED? YES; URBCS1 AUWI 200-300 /[HPF] (0-2); URINE BACTERIA AUWI NEG (NEGATIVE); URINE SQUAMOUS EPITHELIAL CELL OCC /[HPF]
[2016-09-09 15:29] LABS: ALBUMIN SERUM 3.8 g/dL (3.5-5.0); BILIRUBIN, DIRECT 0.1 mg/dL (0.0-0.2); BILIRUBIN,INDIRECT 0.4 mg/dL (0.0-0.9); BILIRUBIN,TOTAL 0.5 mg/dL (0.2-2.0); CALCIUM SERUM 8.8 mg/dL (8.4-10.2); CREATININE SERUM 0.5 mg/dL (0.6-1.4); GLOM FILT RATE Estimated 103.7 mL/min (>60); POTASSIUM 3.9 mmol/L (3.5-5.1); PROTEIN TOTAL SERUM 7.8 g/dL (6.0-8.3)
[2016-12-09] MEDS ORDERED: MONISTAT 11 EACH VAG (23:04)
== END 2016-09-09 17:15 | disposition home or self-care (01) ==
LOC: CED 12:56
PROVIDERS: Emergency Medicine
DX: R10.11 Right upper quadrant pain (principal); E11.9 Type 2 diabetes mellitus without complications; E78.5 Hyperlipidemia, unspecified; I10 Essential (primary) hypertension; J44.9 Chronic obstructive pulmonary disease, unspecified; Z90.710 Acquired absence of both cervix and uterus; Z90.49 Acquired absence of other specified parts of digestive tract; Z88.5 Allergy status to narcotic agent; Z88.8 Allergy status to other drugs, medicaments and biological substances; Z79.899 Other long term (current) drug therapy
CPT/HCPCS: 71010; 74177; 80048; 80076; 81003; 83690; 85025; 85610; 85730; 87086; 93005; 96374; 96375; 99284; J2175; J2405; Q9967